=== PATIENT | female | born 1990 | race Caucasian/White ===

== ENCOUNTER 2022-03-25 16:42 | Emergency (ER) | payer MEDICAID, OTHER ==
[~2022-03-25] VITALS: Ht 175.3 cm; Wt 88.0 kg
[2022-03-25 16:43] VITALS: BP 130/74
[2022-03-25] MEDS ORDERED: TRAZ-186 PO (16:50)
[2022-03-25] MEDS ORDERED: LEXA1TAB PO (16:50)
[2022-03-25] MEDS ORDERED: BUPR8SUB SL (16:53)
[2022-03-25] MEDS ORDERED: IBUP-1022 PO (16:53)
[2022-03-25] MEDS ORDERED: BACI500O8 TOP (17:15)
== END 2022-03-25 17:30 | disposition home or self-care (01) ==
LOC: M ED 16:42
DX: T23.242A Burn of second degree of multiple left fingers (nail), including thumb, initial encounter (principal); T24.212A Burn of second degree of left thigh, initial encounter; X19.XXXA Contact with other heat and hot substances, initial encounter; Y92.018 Other place in single-family (private) house as the place of occurrence of the external cause; Z88.1 Allergy status to other antibiotic agents; Z88.2 Allergy status to sulfonamides; Z88.5 Allergy status to narcotic agent

== ENCOUNTER → 2022-04-20 | Outpatient (CLI) | payer OTHER ==
[~2022-04-20] MED LIST: BACI500O8 TOP; BUPR8SUB SL; IBUP-1022 PO; LEXA1TAB PO; TRAZ-186 PO
[2022-04-20 17:27] LABS: BASO % 0.5 % (0.0-1.0); EOS # 0.1 10^3/uL (0.0-0.5); EOS % 1.7 % (0.0-3.0); LYMPH % 39.4 % (24.0-44.0); MEAN CORPUSCULAR HEMOGLOBIN 29.6 pg (27.0-33.0); MEAN CORPUSCULAR HGB CONC 33.3 g/dl (32.0-36.5); MEAN CORPUSCULAR VOLUME 88.9 fl (80.0-96.0); MONO # 0.8 10^3/uL (0.0-0.8); MONO % 10.5 % (2.0-8.0); NEUTROPHILS # 3.6 10^3/uL (1.5-8.5); NEUTROPHILS % 47.8 % (36.0-66.0); PLATELET COUNT, AUTOMATED 256 10^3/uL (150-450); RED BLOOD COUNT 4.05 10^6/uL (4.00-5.40); WHITE BLOOD COUNT 7.5 10^3/uL (4.0-10.0)
[2022-04-20 18:16] LABS: ALBUMIN 3.7 GM/DL (3.2-5.2); BLOOD UREA NITROGEN 24 MG/DL (7-18); CALCIUM LEVEL 9.6 MG/DL (8.5-10.1); CARBON DIOXIDE LEVEL 29 MEQ/L (21-32); CHLORIDE LEVEL 102 MEQ/L (98-107); CREATININE FOR GFR 0.61 MG/DL (0.55-1.30); FREE T4 0.79 NG/DL (0.76-1.46); GLOMERULAR FILTRATION RATE > 60.0 (>60); GLUCOSE, FASTING 79 MG/DL (70-100); PHOSPHORUS LEVEL 3.8 MG/DL (2.5-4.9); POTASSIUM SERUM 4.2 MEQ/L (3.5-5.1); SODIUM LEVEL 135 MEQ/L (136-145)
[2022-04-20 18:50] LABS: APPEARANCE, URINE MANUAL CLEAR (CLEAR); COLOR, URINE MANUAL YELLOW (YELLOW)
[2022-04-20 18:51] LABS: BILIRUBIN, URINE MANUAL NEGATIVE (NEGATIVE); GLUCOSE, URINE (UA) MANUAL NEGATIVE (NEGATIVE); KETONE, URINE MANUAL NEGATIVE (NEGATIVE); NITRITE, URINE MANUAL NEGATIVE (NEGATIVE); PROTEIN, URINE MANUAL NEGATIVE (NEGATIVE); UROBILINOGEN, URINE MANUAL NORMAL (NORMAL)
[2022-04-20 18:52] LABS: BLOOD URINE MANUAL NEGATIVE (NEGATIVE); LEUKOCYTE ESTERASE, URINE MAN NEGATIVE (NEGATIVE)
[2022-04-20 19:16] LABS: HEPATITIS B SURFACE ANTIGEN NEGATIVE (NEGATIVE)
[2022-04-20 19:43] LABS: HEPATITIS B CORE ANTIBODY IGM NEGATIVE (NEGATIVE)
[2022-04-20 20:04] LABS: HEPATITIS C VIRUS ABY INDEX > 11.0 INDEX (<0.8)
== END ==
LOC: M PLALAB 15:33
PROVIDERS: ATTEND Physician Assistant
DX: Z02.2 Encounter for examination for admission to residential institution (principal); R53.83 Other fatigue

== ENCOUNTER 2022-06-01 15:00 | Emergency (ER) | payer OTHER ==
[~2022-06-01] VITALS: Ht 175.3 cm; Wt 96.5 kg
[2022-06-01] MEDS ORDERED: PRAZ2CAP (15:08)
[2022-06-01] MEDS ORDERED: BUPR150T12 (15:08)
[2022-06-01] MEDS ORDERED: SERO1TAB3 (15:08)
[2022-06-01] MEDS ORDERED: NICO1LOZ11 (15:08)
[2022-06-01] MEDS ORDERED: SUBL300I SC (15:08)
[2022-06-01] MEDS ORDERED: KETOROLAC 30 MG/ML 1ML VIAL IM ONE (18:15)
[2022-06-01 18:46] LABS: RSV AMPLIFICATION NEGATIVE (NEGATIVE)
[2022-06-01] MEDS ORDERED: ONDA4TAB6 PO (19:02)
[2022-06-01] MEDS ORDERED: KETO10TAB PO (19:02)
[2022-06-01 19:07] VITALS: BP 120/75
== END 2022-06-01 19:09 | disposition home or self-care (01) ==
LOC: M ED 15:00
DX: G43.909 Migraine, unspecified, not intractable, without status migrainosus (principal); J06.9 Acute upper respiratory infection, unspecified; F41.9 Anxiety disorder, unspecified; F43.10 Post-traumatic stress disorder, unspecified; Z88.1 Allergy status to other antibiotic agents; Z88.2 Allergy status to sulfonamides; Z88.5 Allergy status to narcotic agent
CPT/HCPCS: 87631; 96372; 99283; J1885